=== PATIENT | male | born 1960 | race Caucasian/White ===

== ENCOUNTER 2024-07-19 07:09 | Emergency (ER) | payer MEDICARE, OTHER ==
[2024-07-19 07:50] LABS: BASOPHILS ABSOLUTE AUTO 0.03 10^3/uL (0.00-0.10); BASOPHILS PERCENT AUTO 0.5 % (0.0-1.0); EOSINOPHILS ABSOLUTE AUTO 0.21 10^3/uL (0.10-0.30); EOSINOPHILS PERCENT AUTO 3.5 % (1.0-3.0); HEMATOCRIT 42.7 % (40.0-52.0); HEMOGLOBIN 14.5 g/dL (13.0-17.0); IMMATURE GRAN ABSOLUTE AUTO 0.01 10^3/uL (0.00-0.50); IMMATURE GRAN PERCENT AUTO 0.2 % (0.0-5.0); LYMPHOCYTES ABSOLUTE AUTO 1.21 10^3/uL (1.00-4.00); MEAN CORPUSCULAR HEMOGLOBIN 30.6 pg (27.0-31.0); MEAN CORPUSCULAR VOLUME 90.1 fL (82.0-92.0); MEAN PLATELET VOLUME 9.4 fL (7.4-10.4); MONOCYTES ABSOLUTE AUTO 0.92 10^3/uL (0.10-0.80); MONOCYTES PERCENT AUTO 15.2 % (2.0-8.0); NEUTROPHILS ABSOLUTE AUTO 3.67 10^3/uL (2.50-7.00); NEUTROPHILS PERCENT AUTO 60.6 % (50.0-70.0); PLATELET COUNT,PLT 196 10^3/uL (150-400); RED BLOOD CELL COUNT 4.74 10^6/uL (4.50-6.00); RED CELL DISTRIBUTION WIDTH 12.4 % (11.5-14.5); WHITE BLOOD CELL COUNT,WBC 6.05 10^3/uL (5.00-10.00)
[2024-07-19] MEDS: Metoprolol Tartrate 5 MG/5 ML SDV IVPUSH ONE ×3 (07:59→09:15)
[2024-07-19 08:12] LABS: ALBUMIN 3.34 g/dL (3.40-5.00); ANION GAP 13.9 mmol/L (5-15); BILIRUBIN TOTAL 0.9 mg/dL (0.2-1.0); CARBON DIOXIDE,CO2 25.9 mmol/L (21.0-32.0); CREATININE 1.49 mg/dL (0.51-1.17); EST CRCL DRUG DOSING (CG) 55.11 mL/min; POTASSIUM,K 3.8 mmol/L (3.5-5.1); PROTEIN TOTAL,TP 6.2 g/dL (6.4-8.2)
[2024-07-19] MEDS: Sodium Chloride 0.9% 1,000 ML IV ONE ×2 (08:38→10:45)
[2024-07-19] MEDS: Apixaban 5 MG Tab PO ONE (09:29)
[2024-07-19] MEDS: Metoprolol Tartrate 50 MG Tab PO ONE (09:44)
[2024-07-19 09:45] VITALS: BP 124/78; PULSE 106
[2024-07-19] MEDS ORDERED: Propofol 200 MG/20 ML SDV ONE (10:44)
[2024-07-19] MEDS ORDERED: Midazolam 1 MG/ML 2 ML SDV ONE (10:45)
== END 2024-07-19 12:40 | disposition home or self-care (01) ==
LOC: KA.ED 07:09
DX: I48.91 Unspecified atrial fibrillation (principal)
CPT/HCPCS: 80053; 84484; 85025; 92950; 96361; 96374; 96376; 99285; A9270; J3490; J7030; J2250; J2704